=== PATIENT | female | born 1980 | race Caucasian/White ===

== ENCOUNTER 2020-12-25 19:29 | Emergency (ER) | payer OTHER ==
[~2020-12-25] VITALS: Ht 167.6 cm; Wt 99.8 kg
[2020-12-25 19:46] VITALS: Ht 167.6 cm; Wt 99.8 kg
[2020-12-26] MEDS ORDERED: NOR10T PO (00:09)
[2020-12-26] MEDS ORDERED: MOT800 PO (00:09)
[2020-12-26] MEDS ORDERED: VOLTAREN100 GM TOP (00:09)
[2020-12-26 00:47] VITALS: BP 114/59
== END 2020-12-26 00:47 | disposition home or self-care (01) ==
LOC: ED 19:29
DX: S76.911A Strain of unspecified muscles, fascia and tendons at thigh level, right thigh, initial encounter (principal); W18.2XXA Fall in (into) shower or empty bathtub, initial encounter; Y93.89 Activity, other specified; Y92.89 Other specified places as the place of occurrence of the external cause; Y99.8 Other external cause status
CPT/HCPCS: J1885; J2405; J3010